=== PATIENT | female | born 1965 | race Hispanic/Latino ===

== ENCOUNTER 2019-11-01 10:22 | Inpatient (IN) | payer OTHER ==
[~2019-11-01] VITALS: Ht 162.6 cm; Wt 65.8 kg
[2019-11-01 10:43] LABS: BASOPHILS % (AUTO) 0.2 % (0.0-5.0); EOSINOPHILS % (AUTO) 0.5 % (0.0-8.0); HEMATOCRIT 35.2 % (36-48); LYMPHOCYTES % (AUTO) 14.1 % (21.0-51.0); MEAN CORPUSCULAR HEMOGLOBIN 25.6 pg (27.0-33.0); MEAN CORPUSCULAR HGB CONC 31.5 g/dL (32.0-36.0); MEAN CORPUSCULAR VOLUME 81.3 fL (79-99); MONOCYTES % (AUTO) 4.1 % (3.0-13.0); NEUTROPHILS % (AUTO) 78.1 % (40.0-77.0); PLATELET COUNT (AUTO) 150 K/uL (130-400); RED BLOOD CELL COUNT(AUTO) 4.33 MIL/uL (4.00-5.50); RED CELL DISTRIBUTION WIDTH 19.1 % (11.0-15.5); WHITE BLOOD COUNT (AUTO) 4.4 K/uL (4.8-10.8)
[2019-11-01 10:52] LABS: CARBON DIOXIDE 33 mmol/L (21-32); CHLORIDE 98 mmol/L (101-111); CREATININE 0.4 mg/dL (0.5-1.5); GLOMERULAR FILTR. RATE CALC 178 mL/min (>60); GLUCOSE,RANDOM 94 mg/dL (70-105); POTASSIUM 3.7 mmol/L (3.5-5.1); SODIUM SERUM 134 mmol/L (136-145); UREA NITROGEN, BLOOD 12 mg/dL (7-18)
[2019-11-01 10:54] LABS: INR 0.97 (0.85-1.15); PROTHROMBIN TIME 10.5 SEC (9.6-11.6)
[2019-11-01 11:16] LABS: ALANINE AMINOTRANSFERASE 138 U/L (12-78); ALBUMIN 2.8 g/dL (3.5-5.0); ASPARTATE AMINOTRANSFERASE 142 U/L (10-37); BILIRUBIN,TOTAL 0.4 mg/dL (0.2-1.0); MYOGLOBIN 556 ng/mL (10-92); TOTAL PROTEIN, SERUM 7.6 g/dL (6.0-8.3); TROPONIN I < 0.04 ng/mL (0.00-0.06)
[2019-11-01] MEDS ORDERED: CEFTRIAXONE SODIUM 2 GM VIAL ONE (11:19)
[2019-11-01] MEDS ORDERED: SODIUM CHLORIDE 0.9% 1000ML 1,000 ML IV ONE (11:19)
[2019-11-01 11:20] LABS: CREATINE KINASE, TOTAL 1184 U/L (21-232)
[2019-11-01 11:25] LABS: APPEARANCE,URINE Clear (CLEAR); BILIRUBIN,URINE Negative (NEGATIVE); COLOR,URINE Yellow (YELLOW); GLUCOSE, URINE (UA) Negative (NEGATIVE); KETONES,URINE Negative (NEGATIVE); LEUKOCYTE ESTERASE ,URINE Negative (NEGATIVE); NITRATE,URINE Negative (NEGATIVE); OCCULT BLOOD,URINE Negative (NEGATIVE); PH,URINE 6.5 (5.0-8.0); PROTEIN,URINE Trace mg/dL (NEGATIVE); UROBILINOGEN,URINE 0.2 mg/dL (0.2-1.0)
[2019-11-01 11:42] LABS: BACTERIA,URINE Few /HPF (None Seen); RBC,URINE 0-1 /HPF (0-1)
[2019-11-01] MEDS ORDERED: DOXYCYCLINE 100MG+NS 250ML 250 ML IV SCH ×2 (12:15→21:00)
[2019-11-01] MEDS ORDERED: DOXYCYCLINE HYCLATE 100 MG TABLET PO ONE (12:22)
[2019-11-01] MEDS ORDERED: ONDANSETRON HCL 4 MG/2 ML VIAL IV PRN (12:45)
[2019-11-01] MEDS ORDERED: SODIUM BICARB 8.4% 50ML SYRING 150 MEQ in DEXTROSE 5%-WATER 1,000 ML IV SCH (12:45)
[2019-11-01] MEDS ORDERED: HYDRALAZINE HCL 20 MG/ML VIAL IV PRN (12:45)
[2019-11-01] MEDS ORDERED: COMPOUND IV REFRIGERATED 1 EACH IVSOLN MISC PRN (13:15)
[2019-11-01 13:29] LABS: PHOSPHORUS 3.9 mg/dL (2.5-4.9)
[2019-11-01 13:36] LABS: CRP QUANTITATIVE 179.6 mg/L (0.00-9.0)
[2019-11-01] MEDS ORDERED: ONDANSETRON HCL 4 MG/2 ML VIAL ONE (13:36)
[2019-11-01] MEDS: ZOSYN 3.375GM+NS 50ML 50 ML IV SCH ×2 (14:00→20:33)
[2019-11-01 14:15] LABS: MYOGLOBIN 568 ng/mL (10-92)
[2019-11-01 14:17] LABS: CREATINE KINASE, TOTAL 1195 U/L (21-232)
[2019-11-01] MEDS ORDERED: ZOSYN 3.375GM+NS 50ML 50 ML IV ONE (18:37)
--- NOTE | 2019-11-01 19:00 | NUR ---
REPORT RECEIVED FROM ER NURSEJUNE. AWAITING PATIENT. REPORT TO BE GIVEN TO STONE JIMENEZ
[2019-11-01 19:20] VITALS: BP 119/67
[2019-11-01] MEDS: FAMOTIDINE/PF 20 MG/2 ML VIAL IV SCH (20:32)
[2019-11-01] MEDS: DOXYCYCLINE HYCLATE 100 MG TABLET PO SCH (20:33)
[2019-11-01] MEDS: ACETAMINOPHEN 325 MG TAB PO PRN (20:43)
[2019-11-01 22:34] LABS: MYOGLOBIN 772 ng/mL (10-92)
[2019-11-01 22:36] LABS: CREATINE KINASE, TOTAL 1136 U/L (21-232)
[2019-11-01 23:12] VITALS: BP 90/58
[2019-11-02 03:16] VITALS: BP 124/72
[2019-11-02] MEDS ORDERED: SODIUM BICARB 50MEQ 50ML VIAL ONE ×2 (03:51→03:57)
[2019-11-02] MEDS ORDERED: DEXTROSE 5%-WATER 1,000 ML IV ONE (03:52)
[2019-11-02] MEDS: ACETAMINOPHEN 325 MG TAB PO PRN ×4 (04:25→20:24)
[2019-11-02] MEDS: ZOSYN 3.375GM+NS 50ML 50 ML IV SCH ×3 (05:43→20:24)
[2019-11-02 08:00] VITALS: BP 107/58
[2019-11-02 09:21] LABS: MYOGLOBIN 525 ng/mL (10-92)
[2019-11-02] MEDS: FAMOTIDINE/PF 20 MG/2 ML VIAL IV SCH ×2 (09:40→20:24)
[2019-11-02] MEDS: ENOXAPARIN SODIUM 40 MG/0.4 ML SYRINGE SQ SCH (09:41)
[2019-11-02] MEDS: DOXYCYCLINE HYCLATE 100 MG TABLET PO SCH ×2 (09:41→20:24)
[2019-11-02 09:49] LABS: CREATINE KINASE, TOTAL 1511 U/L (21-232)
--- NOTE | 2019-11-02 10:15 | NUR ---
Consult consult for Dr French called in, spoke to Mark, information given.
[2019-11-02 12:35] VITALS: BP 134/98
--- NOTE | 2019-11-02 14:28 | NUR ---
JOSÉ MIGUEL PLAN PATIENT IN COVID UNIT PENDING RESULTS. ANILA WILL CONTINUE TO FOLLOW. Addendum: 11/02/19 at 1429 by TORY NGUYEN RN CM Amended: Links added.
[2019-11-02 16:00] VITALS: BP 98/60
--- NOTE | 2019-11-02 16:45 | NUR ---
ABNORMAL LABS DR LOU MADE AWARE OF ABNORMAL LABS AND ELEVATED TEMP 103.
[2019-11-02 17:59] LABS: MYOGLOBIN 506 ng/mL (10-92)
[2019-11-02 18:00] LABS: CREATINE KINASE, TOTAL 1575 U/L (21-232)
[2019-11-02] MEDS ORDERED: PHARMACY COMMUNICATION MISC SCH (18:00)
[2019-11-02] MEDS ORDERED: COMPOUND IV REFRIGERATED 1 EACH IVSOLN MISC PRN (18:15)
[2019-11-02] MEDS: SODIUM BICARB 8.4% 50ML SYRING 150 MEQ in DEXTROSE 5%-WATER 1,000 ML IV SCH (18:50)
[2019-11-02 20:00] VITALS: BP 105/57
[2019-11-02 22:32] LABS: MYOGLOBIN 587 ng/mL (10-92)
[2019-11-02 22:33] LABS: CREATINE KINASE, TOTAL 1673 U/L (21-232)
[2019-11-03] VITALS: BP 106/57
--- NOTE | 2019-11-03 00:25 | NUR ---
paged RESEARCH TEST ENGINE EVALUATOR livestock nutrition territory manager for pts latest CK result which is trending up to [id number], awaiting call back, will monitor
--- NOTE | 2019-11-03 01:04 | NUR ---
spoke to DAR Jo about pts elevated CK, no new orders were given,
[2019-11-03] MEDS: ACETAMINOPHEN 325 MG TAB PO PRN ×4 (03:27→20:22)
[2019-11-03 04:00] VITALS: BP 128/93
[2019-11-03] MEDS: SODIUM BICARB 8.4% 50ML SYRING 150 MEQ in DEXTROSE 5%-WATER 1,000 ML IV SCH ×3 (04:02→19:02)
[2019-11-03] MEDS: ZOSYN 3.375GM+NS 50ML 50 ML IV SCH ×3 (06:01→21:24)
[2019-11-03] MEDS: FAMOTIDINE/PF 20 MG/2 ML VIAL IV SCH ×2 (07:11→20:12)
[2019-11-03] MEDS: DOXYCYCLINE HYCLATE 100 MG TABLET PO SCH ×2 (07:11→20:12)
[2019-11-03] MEDS: ENOXAPARIN SODIUM 40 MG/0.4 ML SYRINGE SQ SCH (07:12)
[2019-11-03 07:30] VITALS: BP 101/63
--- NOTE | 2019-11-03 08:00 | NUR ---
ASSESSMENT PT IS AAO3 DENIES CP DENIES SOB DENIES NV DENIES ABD PAIN. RESTING IN BED. PATIENT STATES SHE FEELS WARM. TEMP IS GREATER THAN 100F. PATIENT ALREADY HAS COOL PACKS TO BODY, TYLENOL PO GIVEN EARLIER BY PM SHIFT. PATIENT IS WITHOUT CHILLS OR TREMORS. CONTINUING TO MONITOR, CALL LIGHT WITHIN REACH.
[2019-11-03] MEDS ORDERED: PRED10TA3 PO (08:27)
[2019-11-03] MEDS ORDERED: LOPERAMIDE HCL 2 MG CAP PO PRN (08:30)
[2019-11-03 09:11] LABS: HEMATOCRIT 28.4 % (36-48); MEAN CORPUSCULAR HGB CONC 32.4 g/dL (32.0-36.0); MEAN CORPUSCULAR VOLUME 80.2 fL (79-99); RED BLOOD CELL COUNT(AUTO) 3.54 MIL/uL (4.00-5.50); RED CELL DISTRIBUTION WIDTH 17.9 % (11.0-15.5); WHITE BLOOD COUNT (AUTO) 4.8 K/uL (4.8-10.8)
[2019-11-03] MEDS ORDERED: LOPERAMIDE HCL 2 MG CAP PO SCH (09:28)
[2019-11-03 09:58] LABS: ALBUMIN 2.1 g/dL (3.5-5.0); BILIRUBIN,TOTAL 0.5 mg/dL (0.2-1.0); CREATININE 0.4 mg/dL (0.5-1.5); TOTAL PROTEIN, SERUM 6.1 g/dL (6.0-8.3)
[2019-11-03 10:16] LABS: POTASSIUM 2.3 mmol/L (3.5-5.1)
[2019-11-03] MEDS ORDERED: POTASSIUM CHLORIDE 20 MEQ/100 ML BAG IV SCH (10:30)
[2019-11-03] MEDS ORDERED: POTASSIUM CHLORIDE 10% ELIXIR 20 MEQ/15 ML UDCUP PO SCH (10:40)
[2019-11-03] MEDS ORDERED: LIDOCAINE HCL-MPF 1% 2ML VIAL IJ PRN (10:45)
[2019-11-03] MEDS ORDERED: POTASSIUM CHLORIDE 20MEQ/100ML 100 ML IV SCH (10:45)
[2019-11-03 10:47] LABS: MYOGLOBIN 434 ng/mL (10-92)
[2019-11-03 10:49] LABS: CREATINE KINASE, TOTAL 1876 U/L (21-232)
[2019-11-03 11:30] VITALS: BP 96/58
[2019-11-03 15:30] VITALS: BP 115/70
[2019-11-03 20:19] VITALS: BP 121/77
[2019-11-04] VITALS (8 sets, daily range): BP systolic 103–129; BP diastolic 64–79
[2019-11-04] MEDS: SODIUM BICARB 8.4% 50ML SYRING 150 MEQ in DEXTROSE 5%-WATER 1,000 ML IV SCH ×4 (02:55→21:07)
[2019-11-04] MEDS: ACETAMINOPHEN 325 MG TAB PO PRN ×2 (04:30→14:31)
[2019-11-04] MEDS: ZOSYN 3.375GM+NS 50ML 50 ML IV SCH ×3 (05:33→20:41)
[2019-11-04 05:47] LABS: BASOPHILS % (AUTO) 0.4 % (0.0-5.0); EOSINOPHILS % (AUTO) 0.4 % (0.0-8.0); HEMATOCRIT 28.4 % (36-48); LYMPHOCYTES % (AUTO) 18.6 % (21.0-51.0); MEAN CORPUSCULAR HEMOGLOBIN 25.7 pg (27.0-33.0); MEAN CORPUSCULAR HGB CONC 31.3 g/dL (32.0-36.0); MEAN CORPUSCULAR VOLUME 82.1 fL (79-99); MONOCYTES % (AUTO) 2.9 % (3.0-13.0); NEUTROPHILS % (AUTO) 77.1 % (40.0-77.0); PLATELET COUNT (AUTO) 138 K/uL (130-400); RED BLOOD CELL COUNT(AUTO) 3.46 MIL/uL (4.00-5.50); RED CELL DISTRIBUTION WIDTH 18.1 % (11.0-15.5); WHITE BLOOD COUNT (AUTO) 5.1 K/uL (4.8-10.8)
[2019-11-04 06:32] LABS: ALBUMIN 2.1 g/dL (3.5-5.0)
[2019-11-04 06:59] LABS: POTASSIUM 2.7 mmol/L (3.5-5.1)
[2019-11-04 07:00] LABS: BILIRUBIN,TOTAL 0.5 mg/dL (0.2-1.0); CREATININE 0.5 mg/dL (0.5-1.5); TOTAL PROTEIN, SERUM 6.3 g/dL (6.0-8.3)
[2019-11-04] MEDS ORDERED: POTASSIUM CHLORIDE 10% ELIXIR 20 MEQ/15 ML UDCUP PO PRN (07:30)
[2019-11-04] MEDS ORDERED: LIDOCAINE HCL-MPF 1% 2ML VIAL IV PRN (07:30)
[2019-11-04] MEDS ORDERED: POTASSIUM CHLORIDE 20MEQ/100ML 100 ML IV PRN (07:30)
[2019-11-04 09:17] LABS: MYOGLOBIN 496 ng/mL (10-92)
[2019-11-04 09:56] LABS: CREATINE KINASE, TOTAL 1739 U/L (21-232)
[2019-11-04] MEDS: FAMOTIDINE/PF 20 MG/2 ML VIAL IV SCH ×2 (10:35→20:41)
[2019-11-04] MEDS: DOXYCYCLINE HYCLATE 100 MG TABLET PO SCH ×2 (10:35→20:41)
[2019-11-04] MEDS: ENOXAPARIN SODIUM 40 MG/0.4 ML SYRINGE SQ SCH (10:35)
--- NOTE | 2019-11-04 11:31 | NUR ---
INITIAL SW met with patient. Patient lives with friend, Karla Villa, [phone]. She has no home services. DME: glucometer (no insulin), BPM. Patient is able to complete ADL's independently and drives. 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 PCP is MD at [facility]. Pharmacy is [facility]. DCP is home. Addendum: 11/04/19 at 1133 by KARON LISA SS Amended: Links added.
[2019-11-04] MEDS: POTASSIUM CHLORIDE 20MEQ/100ML 100 ML IV PRN ×2 (12:11→19:52)
[2019-11-04] MEDS: LIDOCAINE HCL-MPF 1% 2ML VIAL IV PRN ×2 (12:11→19:52)
[2019-11-04] MEDS: PREDNISONE 10 MG TABLET PO SCH (20:41)
[2019-11-05] MEDS: ACETAMINOPHEN 325 MG TAB PO PRN (01:44)
[2019-11-05 04:05] VITALS: BP 115/71
[2019-11-05 04:53] LABS: BASOPHILS % (AUTO) 0.3 % (0.0-5.0); HEMATOCRIT 26.1 % (36-48); LYMPHOCYTES % (AUTO) 19.2 % (21.0-51.0); MEAN CORPUSCULAR HEMOGLOBIN 25.8 pg (27.0-33.0); MEAN CORPUSCULAR HGB CONC 31.4 g/dL (32.0-36.0); MEAN CORPUSCULAR VOLUME 82.1 fL (79-99); MONOCYTES % (AUTO) 2.3 % (3.0-13.0); NEUTROPHILS % (AUTO) 77.7 % (40.0-77.0); PLATELET COUNT (AUTO) 134 K/uL (130-400); RED BLOOD CELL COUNT(AUTO) 3.18 MIL/uL (4.00-5.50); RED CELL DISTRIBUTION WIDTH 17.6 % (11.0-15.5); WHITE BLOOD COUNT (AUTO) 3.9 K/uL (4.8-10.8)
[2019-11-05 05:15] LABS: ALBUMIN 1.9 g/dL (3.5-5.0); BILIRUBIN,TOTAL 0.3 mg/dL (0.2-1.0); CREATININE 0.4 mg/dL (0.5-1.5); TOTAL PROTEIN, SERUM 5.8 g/dL (6.0-8.3)
[2019-11-05] MEDS: ZOSYN 3.375GM+NS 50ML 50 ML IV SCH (05:27)
[2019-11-05 05:51] LABS: POTASSIUM 2.7 mmol/L (3.5-5.1)
[2019-11-05] MEDS: POTASSIUM CHLORIDE 20 MEQ ERTAB PO PRN ×3 (05:55→18:21)
--- NOTE | 2019-11-05 08:10 | NUR ---
NOTE AAOX3. DENIES PAIN. REPORTS DISCOMFORT AND WEAKNESS. SHE HAS HARD TIME MOVING IN BED IN AND OUT OF BED AND WALKING. NEEDS ASSISTANCE WITH ADL.AFEBRILE THIS AM. CAME IN WITH FEBRILE ILLNESS. H/O DERMATOMYOSITIS. WE ARE STILL PENDING RHEUMATOLOGY CONSULT. WILL CALL DR GOMEZ SINCE SHE IS ONE OF HIS PATIENT ALREADY. ALSO CONSULTED DR PRUETT BUT HE HAS NOT COME TO SEE HER YET. COVID INFECTION RULED OUT.
[2019-11-05 08:58] VITALS: BP 120/74
[2019-11-05] MEDS: SODIUM BICARB 8.4% 50ML SYRING 150 MEQ in DEXTROSE 5%-WATER 1,000 ML IV SCH ×2 (10:04→17:46)
[2019-11-05] MEDS: FAMOTIDINE/PF 20 MG/2 ML VIAL IV SCH ×2 (11:04→20:17)
[2019-11-05] MEDS: PREDNISONE 10 MG TABLET PO SCH (11:04)
[2019-11-05] MEDS: ENOXAPARIN SODIUM 40 MG/0.4 ML SYRINGE SQ SCH (11:05)
[2019-11-05] MEDS: DOXYCYCLINE HYCLATE 100 MG TABLET PO SCH ×2 (11:05→20:17)
[2019-11-05] MEDS: POTASSIUM CHLORIDE 20MEQ/100ML 100 ML IV PRN (11:06)
[2019-11-05 12:01] VITALS: BP 133/86
[2019-11-05] MEDS ORDERED: FLUCONAZOLE 200 MG/NS 100 ML 100 ML IV SCH (13:00)
[2019-11-05] MEDS ORDERED: VANCOMYCIN PROTOCOL PER PHARMACY IV SCH (13:00)
[2019-11-05] MEDS ORDERED: VANCOMYCIN 1.5 GM in SODIUM CHLORIDE 0.9% 250 ML IV ONE (14:00)
[2019-11-05] MEDS ORDERED: IOHEXOL 350 MG/ML 100ML INFUS..BTL IV ONE (14:56)
[2019-11-05] MEDS ORDERED: METHYLPREDNISOLONE SOD SUCC 40MG/ML 1ML IVP SCH (16:00)
[2019-11-05] MEDS ORDERED: PHARMACY COMMUNICATION MISC SCH ×2 (16:15→17:00)
[2019-11-05 16:54] VITALS: BP 125/77
[2019-11-05] MEDS: MEROPENEM 1 GM VIAL IVP SCH ×2 (17:45→20:18)
--- NOTE | 2019-11-05 18:00 | NUR ---
NOTE DR PRUETT CAME IN TO SEE PATIENT AND HE CHANGED ABX THERAPY. ADDED MORE LABS AND CT CHEST ABD AND PELVIS. DR PERRY CAME IN WITH ANDRES BELL AND CHANGED STEROID THERAPY BACK TO IV DOSING AND WE ARE PENDING DR GOMEZ TO COME SEE THE PATIENT. I SPOKE TO HIS OFFICE STAFF AND CALLED IN THE CONSULT AND THEY WERE GOING TO NOTIFY HIM ABOUT IT. HE HAS NOT MADE ROUNDS TO THIS MOMENT.
[2019-11-05] MEDS: METHYLPREDNISOLONE SOD SUCC 40MG/ML 1ML IVP SCH (18:21)
[2019-11-05 19:34] VITALS: BP 132/80
[2019-11-05] MEDS ORDERED: SODIUM CHLORIDE 0.9% 500ML 500 ML IV ONE (19:57)
[2019-11-05] MEDS: FLUCONAZOLE 200 MG/NS 100 ML 100 ML IV SCH (20:17)
[2019-11-05 23:28] VITALS: BP 138/89
[2019-11-06] MEDS: VANCOMYCIN 1GM+NS 250ML 250 ML IV SCH ×3 (00:24→17:16)
[2019-11-06] MEDS: METHYLPREDNISOLONE SOD SUCC 40MG/ML 1ML IVP SCH ×4 (00:24→17:50)
[2019-11-06] MEDS: SODIUM BICARB 8.4% 50ML SYRING 150 MEQ in DEXTROSE 5%-WATER 1,000 ML IV SCH ×3 (01:52→16:44)
[2019-11-06 03:29] VITALS: BP 127/79
[2019-11-06 04:27] LABS: HEMATOCRIT 25.8 % (36-48); LYMPHOCYTES % (AUTO) 32.6 % (21.0-51.0); MEAN CORPUSCULAR HEMOGLOBIN 25.3 pg (27.0-33.0); MEAN CORPUSCULAR HGB CONC 31.4 g/dL (32.0-36.0); MEAN CORPUSCULAR VOLUME 80.6 fL (79-99); MONOCYTES % (AUTO) 2.7 % (3.0-13.0); NEUTROPHILS % (AUTO) 63.8 % (40.0-77.0); PLATELET COUNT (AUTO) 132 K/uL (130-400); RED CELL DISTRIBUTION WIDTH 17.5 % (11.0-15.5); WHITE BLOOD COUNT (AUTO) 2.2 K/uL (4.8-10.8)
[2019-11-06] MEDS: MEROPENEM 1 GM VIAL IVP SCH ×3 (04:27→20:34)
[2019-11-06 05:15] LABS: ALBUMIN 1.9 g/dL (3.5-5.0); BILIRUBIN,TOTAL 0.3 mg/dL (0.2-1.0); CREATININE 0.3 mg/dL (0.5-1.5); POTASSIUM 3.5 mmol/L (3.5-5.1); TOTAL PROTEIN, SERUM 6.1 g/dL (6.0-8.3)
[2019-11-06 05:27] LABS: BAND NEUTROPHILS % (MANUAL) 9 % (0-2); LYMPHOCYTES % (MANUAL) 17 % (22-44); MONOCYTES % (MANUAL) 1 % (2-9); REACTIVE LYMPHOCYTES 1 % (0-0); SEGMENTED NEUTROPHILS % 72 % (40-70)
[2019-11-06 05:28] LABS: MAN.DIFF COMMENT-IMPRESSION MANUAL DIFFERENTIAL; PLATELET MORPHOLOGY COMMENT ADEQUATE
[2019-11-06] MEDS: POTASSIUM CHLORIDE 20 MEQ ERTAB PO PRN (06:05)
[2019-11-06] MEDS: DOXYCYCLINE HYCLATE 100 MG TABLET PO SCH ×2 (08:32→20:34)
[2019-11-06] MEDS: FAMOTIDINE/PF 20 MG/2 ML VIAL IV SCH ×2 (08:36→20:34)
[2019-11-06] MEDS: ENOXAPARIN SODIUM 40 MG/0.4 ML SYRINGE SQ SCH (08:39)
[2019-11-06 08:46] VITALS: BP 137/89
[2019-11-06 11:00] VITALS: BP 154/94
[2019-11-06 16:28] VITALS: BP 148/97
[2019-11-06 20:17] VITALS: BP 141/91
[2019-11-06] MEDS: FLUCONAZOLE 200 MG/NS 100 ML 100 ML IV SCH (20:33)
[2019-11-06 23:36] VITALS: BP 153/94
[2019-11-07 04:27] VITALS: BP 146/91
[2019-11-07] MEDS: MEROPENEM 1 GM VIAL IVP SCH ×3 (05:02→20:47)
[2019-11-07] MEDS: METHYLPREDNISOLONE SOD SUCC 40MG/ML 1ML IVP SCH ×4 (05:31→18:11)
[2019-11-07 06:01] LABS: HEMATOCRIT 27.6 % (36-48); LYMPHOCYTES % (AUTO) 34.4 % (21.0-51.0); MEAN CORPUSCULAR HEMOGLOBIN 25.4 pg (27.0-33.0); MEAN CORPUSCULAR HGB CONC 31.5 g/dL (32.0-36.0); MEAN CORPUSCULAR VOLUME 80.5 fL (79-99); MONOCYTES % (AUTO) 8.6 % (3.0-13.0); NEUTROPHILS % (AUTO) 56.2 % (40.0-77.0); PLATELET COUNT (AUTO) 154 K/uL (130-400); RED BLOOD CELL COUNT(AUTO) 3.43 MIL/uL (4.00-5.50); RED CELL DISTRIBUTION WIDTH 17.6 % (11.0-15.5); WHITE BLOOD COUNT (AUTO) 2.6 K/uL (4.8-10.8)
[2019-11-07 06:20] LABS: CREATININE 0.4 mg/dL (0.5-1.5); POTASSIUM 3.4 mmol/L (3.5-5.1)
[2019-11-07 08:00] VITALS: BP 160/95
[2019-11-07] MEDS: DOXYCYCLINE HYCLATE 100 MG TABLET PO SCH ×2 (08:23→20:48)
[2019-11-07] MEDS: FAMOTIDINE/PF 20 MG/2 ML VIAL IV SCH ×2 (08:23→20:47)
[2019-11-07] MEDS: VANCOMYCIN 1GM+NS 250ML 250 ML IV SCH ×3 (08:23→17:14)
[2019-11-07] MEDS: ENOXAPARIN SODIUM 40 MG/0.4 ML SYRINGE SQ SCH (08:24)
[2019-11-07 12:04] VITALS: BP 168/95
[2019-11-07] MEDS: POTASSIUM CHLORIDE 20 MEQ ERTAB PO PRN ×2 (13:27→17:14)
[2019-11-07] MEDS: SODIUM BICARB 8.4% 50ML SYRING 150 MEQ in DEXTROSE 5%-WATER 1,000 ML IV SCH ×4 (15:08→23:59)
[2019-11-07 16:00] VITALS: BP 144/87
--- NOTE | 2019-11-07 18:00 | NUR ---
TRIED CALLING DR GOMEZ'S OFFICE EARLIER AND OFFICE WAS CLOSED. ALSO SPOKE WITH PATIENT AND THEIR EXPERIENCE OF BEING OFF THE PREDNISONE AND HOW IT HAS AFFECTED HER HEALTH AND WILL NEED TO GO HOME ON [facility]EROIDS WELL NEEDING AN APPOINTMENT SOON POSSIBLE WITH DR GOMEZ IN ORDER TO FEEL COMFORTABLE IN LEAVING THE HOSPITAL. WILL CALL DR GOMEZ'S OFFICE IN THE MORNING TO ARRANGE A REASONABLE FOLLOW UP APPOINT FOR PATIENT. Addendum: 11/07/19 at 1803 by PEPE MATT RN RN Amended: Links added.
[2019-11-07] MEDS ORDERED: PRED10TA3 PO (18:04)
[2019-11-07] MEDS ORDERED: LEVO500T2 PO (18:04)
--- NOTE | 2019-11-07 19:10 | NUR ---
Received report ,patient is not to be discharged today because of medication issue and patient also refused to be discharged as pre report.
[2019-11-07] MEDS: FLUCONAZOLE 200 MG/NS 100 ML 100 ML IV SCH (20:48)
[2019-11-07 20:49] VITALS: BP 147/75
--- NOTE | 2019-11-07 23:02 | NUR ---
DAY HAUL YOUTH SUPERVISOR AJ notified,no new order received.
[2019-11-08 00:32] VITALS: BP 132/87
[2019-11-08] MEDS: METHYLPREDNISOLONE SOD SUCC 40MG/ML 1ML IVP SCH ×2 (00:40→06:22)
[2019-11-08] MEDS: VANCOMYCIN 1GM+NS 250ML 250 ML IV SCH ×2 (02:28→08:18)
[2019-11-08 04:23] VITALS: BP 151/88
[2019-11-08] MEDS: MEROPENEM 1 GM VIAL IVP SCH (06:22)
[2019-11-08] MEDS: SODIUM BICARB 8.4% 50ML SYRING 150 MEQ in DEXTROSE 5%-WATER 1,000 ML IV SCH (06:22)
[2019-11-08 08:00] VITALS: BP 156/91
[2019-11-08] MEDS: ENOXAPARIN SODIUM 40 MG/0.4 ML SYRINGE SQ SCH (08:19)
[2019-11-08] MEDS: DOXYCYCLINE HYCLATE 100 MG TABLET PO SCH (08:19)
[2019-11-08] MEDS: FAMOTIDINE/PF 20 MG/2 ML VIAL IV SCH (08:19)
[2019-11-08 11:52] VITALS: BP 155/100
--- NOTE | 2019-11-08 12:25 | NUR ---
SL TO HER RT FOREARM WAS DC, WITH NO REDNESS OR HEMATOMA . ARAVIND MARTINEZ APPLICATION ON. REVIEW APPT .SETUP WITH DR GOMEZ, AND TO FOLLOW UPWITH DR VERDE, REVIEW DISCHARGE MEDICATIONS EXPLAIN PER DR. LOU . REGARDING , TAPERING HER PRESIDONE ,PO MEDICATION
== END 2019-11-08 12:30 | disposition home or self-care (01) ==
LOC: EDH 10:22 → EDHIP 10:23 → 2DH 18:24 → 4CH 11-04 07:23
PROVIDERS: ADMIT Internal Medicine; ATTEND Internal Medicine
DX: K81.0 Acute cholecystitis (principal); B37.0 Candidal stomatitis; M33.13 Other dermatomyositis without myopathy; K80.20 Calculus of gallbladder without cholecystitis without obstruction; M06.9 Rheumatoid arthritis, unspecified; D72.819 Decreased white blood cell count, unspecified; R74.0 Nonspecific elevation of levels of transaminase and lactic acid dehydrogenase [LDH]; E87.6 Hypokalemia; R74.8 Abnormal levels of other serum enzymes; Z20.828 Contact with and (suspected) exposure to other viral communicable diseases; Z91.19 Patient's noncompliance with other medical treatment and regimen; Z79.52 Long term (current) use of systemic steroids
CPT/HCPCS: 36415; 71045; 71260; 74177; 76705; 80048; 80053; 80202; 81001; 82550; 82948; 83605; 83874; 84100; 84132; 84145; 84484; 85025; 85027; 85610; 85730; 86140; 86308; 86606; 86612; 86635; 86698; 87040; 87088; 87804; 93005; G0378; J0360; J0696; J1450; J1650; J2185; J2405; J2543; J2920; J3370; J3480; J3490; J7030; J7040; J7050; J7070; J7512; Q9967

== ENCOUNTER 2020-12-21 22:29 | Emergency (ER) | payer OTHER ==
[~2020-12-21] VITALS: Ht 160 cm; Wt 64.0 kg
[~2020-12-21 22:29] MED LIST: LEVO500T2 PO; PRED10TA3 PO
[2020-12-21] MEDS ORDERED: ONDANSETRON 4MG INJ IVP ONE (23:00)
[2020-12-21 23:18] LABS: BASOPHILS % (AUTO) 0.3 % (0.0-5.0); EOSINOPHILS % (AUTO) 0.6 % (0.0-8.0); HEMATOCRIT 41.9 % (36-48); LYMPHOCYTES % (AUTO) 14.1 % (21.0-51.0); MEAN CORPUSCULAR HEMOGLOBIN 28.9 pg (27.0-33.0); MEAN CORPUSCULAR HGB CONC 32.2 g/dL (32.0-36.0); MEAN CORPUSCULAR VOLUME 89.7 fL (79-99); MONOCYTES % (AUTO) 5.2 % (3.0-13.0); NEUTROPHILS % (AUTO) 77.3 % (40.0-77.0); PLATELET COUNT (AUTO) 256 K/uL (130-400); RED BLOOD CELL COUNT(AUTO) 4.67 MIL/uL (4.00-5.50); RED CELL DISTRIBUTION WIDTH 14.5 % (11.0-15.5); WHITE BLOOD COUNT (AUTO) 3.6 K/uL (4.8-10.8)
[2020-12-21 23:18] LABS: APPEARANCE,URINE Clear (CLEAR); BILIRUBIN,URINE Negative (NEGATIVE); COLOR,URINE Dark Yellow (YELLOW); GLUCOSE, URINE (UA) Negative (NEGATIVE); KETONES,URINE 15 mg/dL (NEGATIVE); LEUKOCYTE ESTERASE ,URINE Small (NEGATIVE); NITRATE,URINE Negative (NEGATIVE); OCCULT BLOOD,URINE Negative (NEGATIVE); PH,URINE 6.5 (5.0-8.0); PROTEIN,URINE Trace mg/dL (NEGATIVE)
[2020-12-21 23:28] LABS: BACTERIA,URINE None Seen /HPF (None Seen)
[2020-12-21 23:29] LABS: SQUAMOUS EPITHELIAL CELL,UR Few /HPF (0-2)
[2020-12-21 23:31] LABS: RBC,URINE None Seen /HPF (0-1)
[2020-12-21 23:37] LABS: CREATININE 0.4 mg/dL (0.5-1.5); POTASSIUM 4.2 mmol/L (3.5-5.1)
[2020-12-21 23:41] LABS: ALBUMIN 3.5 g/dL (3.5-5.0); BILIRUBIN,TOTAL 0.5 mg/dL (0.2-1.0); TOTAL PROTEIN, SERUM 7.5 g/dL (6.0-8.3)
[2020-12-22] MEDS ORDERED: 0.9%NACL 1000ML 1,000 ML IV ONE
[2020-12-22] MEDS ORDERED: PANTOPRAZOLE 40 MG/VIAL IVP ONE
[2020-12-22] MEDS ORDERED: METOCLOPRAMIDE 10 MG/2 ML VIAL IVP ONE
[2020-12-22] MEDS ORDERED: METOCLOPRAMIDE 10 MG/2 ML VIAL ONE (00:18)
[2020-12-22] MEDS ORDERED: FAMOTIDINE 20MG VIAL IV ONE ×2 (00:19)
[2020-12-22] MEDS ORDERED: PANTOPRAZOLE 40 MG/VIAL ONE (00:19)
[2020-12-22] MEDS ORDERED: DICY20TA2 PO (02:16)
[2020-12-22] MEDS ORDERED: METO-296 PO (02:16)
[2020-12-22] MEDS ORDERED: PHEN12S PR (02:16)
[2020-12-22] MEDS ORDERED: PANT40TA54 PO (02:16)
[2020-12-22 02:22] VITALS: BP 146/58
[2020-12-22] MEDS ORDERED: DiphenhydrAMINE HCL 50 MG/ML VIAL IV ONE (02:30)
== END 2020-12-22 02:44 | disposition home or self-care (01) ==
LOC: EDH 22:29
DX: R10.13 Epigastric pain (principal); E86.9 Volume depletion, unspecified; D25.9 Leiomyoma of uterus, unspecified; B34.9 Viral infection, unspecified; R74.01 Elevation of levels of liver transaminase levels; Z20.822 Contact with and (suspected) exposure to COVID-19; M06.9 Rheumatoid arthritis, unspecified; Z79.899 Other long term (current) drug therapy; Z79.52 Long term (current) use of systemic steroids
CPT/HCPCS: 36415; 71045; 74176; 80053; 81001; 83605; 83690; 84484; 85025; 87635; 93005; 96361; 96374; 96375; 99285; C9113; C9803; J1200; J2405; J2765; J3490; J7030